=== PATIENT | female | born 1980 | race American Indian/Alaskan Native ===

== ENCOUNTER 2016-09-26 10:12 | Emergency (ER) | payer BC, OTHER ==
[2016-09-26 10:32] VITALS: BMI 35.5
[2016-09-26 10:35] VITALS: TEMP 99.2; O2SAT 96
--- NOTE | 2016-09-26 11:14 | ED PDOC ---
Arrival/HPI - General Chief Complaint: Allergic Reaction Time Seen by Provider: 09/26/16 10:37 Historian: Patient - History of Present Illness Narrative History of Present Illness (Text): 09/26/16 11:36 36-year-old female presents today with bilateral eye swelling and pruritus which started about one hour prior to arrival. Patient states that she fell itchiness of the eyes started to scratch the eyes and then looked in the mirror and noticed that the eyelids were swollen. She denies difficulty breathing or swallowing. Denies fevers or chills. No chest pain or shortness of breath. Patient denies foreign body sensation. She denies any pain in the eyes. She denies any other complaints. No medications have been taken at home. Past Medical History - Provider Review Nursing Documentation Reviewed: Yes - Travel History Have you recently traveled outside [place] w/in the past 3 mons?: Yes If Yes, travel location?: [place] - Past History Past History: No Previous - Infectious Disease Hx of Infectious Diseases: None - Tetanus Immunization Tetanus Immunization: Unknown - Past Medical History Past Medical History: No Previous - Cardiac Hx Cardiac Disorders: No - Pulmonary Hx Respiratory Disorders: Yes Hx Bronchitis: Yes Hx Pneumonia: Yes - Neurological Hx Neurological Disorder: No - HEENT Hx HEENT Disorder: No - Renal Hx Renal Disorder: No - Endocrine/Metabolic Hx Endocrine Disorders: Yes Hx Diabetes Mellitus Type 2: Yes - Hematological/Oncological Hx Blood Disorders: No - Integumentary Hx Dermatological Disorder: No - Musculoskeletal/Rheumatological Hx Musculoskeletal Disorders: No Hx Falls: No - Gastrointestinal Hx Gastrointestinal Disorders: No - Genitourinary/Gynecological Hx Genitourinary Disorders: No - Psychiatric Hx Psychophysiologic Disorder: No Hx Anxiety: No Hx Bipolar Disorder: No Hx Depression: No Hx Emotional Abuse: No Hx Hallucinations: No Hx Panic Disorder: No Hx Post Traumatic Stress Disorder: No Hx Psychosis: No Hx Physical Abuse: No Hx Schizophrenia: No Hx Sexual Abuse: No Hx Substance Use: No - Past Surgical History Past Surgical History: No Previous - Anesthesia Hx Anesthesia: No Hx Anesthesia Reactions: No Hx Malignant Hyperthermia: No - Suicidal Assessment Feels Threatened In Home Enviroment: No Family/Social History - Physician Review Nursing Documentation Reviewed: Yes Family/Social History: Unknown Family HX Smoking Status: Never Smoked Hx Alcohol Use: Yes Frequency of alcohol use: Socially Hx Substance Use: No Hx Substance Use Treatment: No Allergies/Home Meds Allergies/Adverse Reactions: Allergies soy Allergy (Verified 09/26/16 10:32) RASH Review of Systems - Review of Systems Constitutional: absent: Fatigue, Fevers Eyes: absent: Vision Changes, Photophobia, Eye Pain Respiratory: absent: SOB, Cough Cardiovascular: absent: Chest Pain, Palpitations Gastrointestinal: absent: Abdominal Pain, Nausea, Vomiting Genitourinary Female: absent: Dysuria, Frequency, Hematuria Musculoskeletal: absent: Arthralgias, Back Pain, Neck Pain Skin: Pruritis Neurological: absent: Headache, Dizziness Psychiatric: absent: Anxiety, Depression Physical Exam Vital Signs Reviewed: Yes Vital Signs Temp Pulse Resp BP Pulse Ox 09/26/16 10:32 99.2 F 71 16 118/80 96 Temperature: Afebrile Blood Pressure: Normal Pulse: Regular Respiratory Rate: Normal Appearance: Positive for: Well-Appearing, Non-Toxic, Comfortable Pain Distress: None Mental Status: Positive for: Alert and Oriented X 3 - Systems Exam Head: Present: Atraumatic, Swelling (minimal swelling noted to the upper and lower eyelids bilaterally; no erythema; non tender; + slight chemosis noted to left conjunctiva. ) Pupils: Present: PERRL Extroacular Muscles: Present: EOMI Conjunctiva: Present: Normal. No: Injected Mouth: Present: Moist Mucous Membranes. No: Drooling Pharnyx: Present: Normal. No: ERYTHEMA, Strider Neck: Present: Normal Range of Motion Respiratory/Chest: Present: Clear to Auscultation, Good Air Exchange. No: Respiratory Distress, Accessory Muscle Use Cardiovascular: Present: Regular Rate and Rhythm, Normal S1, S2. No: Murmurs Skin: Present: Warm, Dry, Normal Color. No: Rashes Psychiatric: Present: Alert, Oriented x 3 Medical Decision Making ED Course and Treatment: 09/26/16 11:43 Patient is nontoxic well-appearing in no distress with stable vital signs no angioedema. Lungs are clear to auscultation bilaterally there is no wheezing noted. The airway is patent. Minimal bilateral upper and lower eyelid swelling without erythema or tenderness Patient is driving home. Will give prednisone and Pepcid in the ER and discharged home with prednisone and Pepcid and Patanol eye drops covering for allergic eye. Visual acuity within normal limits I advised taking medications as prescribed. I've advised following up with the eye doctor. I have advised immediate return if symptoms worsen persist or if new symptoms develop Patient verbalizes understanding of discharge instructions and need for immediate followup. all aspects of this case were discussed the attending of record. Impression :Allergic reaction Benadryl every 6 hours as needed for itch Prednisone once daily x4 days Patanol 1 drop in each eye twice daily Pepcid one tablet daily Follow up with the eye doctor within the next 2 days. Follow up with the primary care physician within the next 2 days Return if symptoms worsen persist or if new symptoms develop: Shortness of breath, feeling of throat closing, difficulty speaking or any other concerning symptoms develop - Medication Orders Current Medication Orders: Discontinued Medications Famotidine (Pepcid) 20 mg PO STAT STA Stop: 09/26/16 10:56 Prednisone (Prednisone Tab) 60 mg PO STAT ONE Stop: 09/26/16 10:56 Disposition/Present on Arrival - Present on Arrival Any Indicators Present on Arrival: Yes History of DVT/PE: No History of Uncontrolled Diabetes: Yes Urinary Catheter: No History of Decub. Ulcer: No History Surgical Site Infection Following: None - Disposition Have Diagnosis and Disposition been Completed?: Yes Diagnosis: Eye swelling, bilateral, Chemosis of conjunctiva Disposition: HOME/ ROUTINE Disposition Time: 11:01 Patient Plan: Discharge Condition: GOOD Discharge Instructions (ExitCare): General Allergic Reaction (ED) Additional Instructions: Benadryl every 6 hours as needed for itch Prednisone once daily x4 days Patanol 1 drop in each eye twice daily Pepcid one tablet daily Follow up with the eye doctor within the next 2 days. Follow up with the primary care physician within the next 2 days Return if symptoms worsen persist or if new symptoms develop: Shortness of breath, feeling of throat closing, difficulty speaking or any other concerning symptoms develop Prescriptions: DiphenhydrAMINE [Benadryl] 25 mg PO Q6H #20 cap Olopatadine 0.1% Opht [Patanol 5 Ml] 1 drop OU BID #1 bottle Famotidine [Pepcid] 20 mg PO DAILY #30 tab predniSONE [predniSONE Tab] 3 tab PO DAILY #12 tab Referrals: Luc Fuchs [Staff Provider] - Follow up with primary Ofelia Matthews MD [Staff Provider] - Follow up with primary Forms: WORK NOTE
[2016-09-26 11:40] VITALS: BP 115/76; PULSE 68; RESP 18
== END 2016-09-26 12:07 | disposition home or self-care (01) ==
LOC: ED 10:12
DX: H11.423 Conjunctival edema, bilateral (principal); H57.8 Other specified disorders of eye and adnexa